=== PATIENT | female | born 1940 | race American Indian/Alaskan Native ===

== ENCOUNTER 2016-09-06 08:51 | Emergency (ER) | payer MEDICARE, BC ==
[2016-09-06 08:57] VITALS: BP 125/91
[2016-09-06] MEDS ORDERED: DUONEB 0.5 MG-3 MG/3 ML SOLN IH ONE ×2 (11:15→12:02)
--- NOTE | 2016-09-06 11:27 | XRay Report ---
Chest 2 views: History: Shortness of breath at night worst. Findings: Normal cardiomediastinal silhouette. The trachea is midline. Scarring right upper lobe and left lower lobe. No consolidation, pneumothorax or pleural effusion. Impression: Findings as described. No acute lung changes.
--- NOTE | 2016-09-06 11:55 | Emergency Department Report ---
- General Chief Complaint: Upper Respiratory Infection Stated Complaint: CHEST CONGESTION/HEAD PAIN Time Seen by Provider: 09/06/16 11:10 Source: patient Mode of arrival: Ambulatory Limitations: No Limitations - History of Present Illness Initial Comments: This is a 76-year-old female well-nourished with nontoxic or ill in appearance that presents with productive cough, head congestion, wheezing for the past week. He states he gets short of breath while sleeping at night, but at this current moment patient denies any shortness of breath. Patient stated the cough is productive with yellowish/greenish. Patient denies any fever or chills. Patient denies chest pain, headache, nausea vomiting, abdominal pain, numbness or tingling sensation of extremities. Patient agrees to sick contacts. 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 Patient denies any history of asthma. Denies recent antibiotics use. Patient stated her pulse oximetry usually runs between 93-96 and is considered normal for her. Patient states allergies to Cipro. MD Complaint: cough (productive), rhinorrhea -: Gradual, week(s) (1) Severity: mild Consistency: constant Associated Symptoms: rhinorrhea, nasal congestion, cough (productive). denies: fever, chills, myalgias, diaphoresis, headache, sore throat, chest pain, shortness of breath, abdominal pain, nausea, vomiting, diarrhea, dysuria, rash, confusion, right sweats, weight loss, epistaxis, hoarseness, ear pain - Related Data Previous Rx's Medication Instructions Recorded Last Taken Type ALBUTEROL Inhaler [ProAir HFA 1 puff IH PRN #1 inha 09/06/16 Unknown Rx Inhaler] Azithromycin [Zithromax Z-NYDIA] 250 mg PO DAILY 5 Days 09/06/16 Unknown Rx Prednisone [predniSONE] 40 mg PO QDAY 5 Days 09/06/16 Unknown Rx Allergies Allergy/AdvReac Type Severity Reaction Status Date / Time ciprofloxacin [From Cipro] Allergy Rash Unverified 05/20/14 14:49 ciprofloxacin HCl Allergy Rash Unverified 05/20/14 14:49 [From Cipro] ED Review of Systems ROS: Stated complaint: CHEST CONGESTION/HEAD PAIN Other details as noted in HPI Constitutional: denies: chills, fever Eyes: denies: eye pain, eye discharge, vision change ENT: congestion. denies: ear pain, throat pain, dental pain, hearing loss, epistaxis Respiratory: cough (productive), wheezing. denies: orthopnea, shortness of breath, SOB with exertion, SOB at rest, stridor Cardiovascular: denies: chest pain, palpitations, dyspnea on exertion, orthopnea , edema, syncope, paroxysmal nocturnal dyspnea Endocrine: no symptoms reported Gastrointestinal: denies: abdominal pain, nausea, diarrhea Genitourinary: denies: urgency, dysuria, hematuria, discharge Musculoskeletal: denies: back pain, joint swelling, arthralgia Skin: denies: rash, lesions Neurological: denies: headache, weakness, paresthesias Psychiatric: denies: anxiety, depression Hematological/Lymphatic: denies: easy bleeding, easy bruising ED Past Medical Hx - Past Medical History Previous Medical History?: Yes Hx Hypertension: Yes - Surgical History Past Surgical History?: No - Social History Smoking Status: Never Smoker Substance Use Type: Alcohol - Medications Home Medications: Home Medications Medication Instructions Recorded Confirmed Last Taken Type ALBUTEROL Inhaler [ProAir HFA 1 puff IH PRN #1 inha 09/06/16 Unknown Rx Inhaler] Azithromycin [Zithromax Z-NYDIA] 250 mg PO DAILY 5 Days 09/06/16 Unknown Rx Prednisone [predniSONE] 40 mg PO QDAY 5 Days 09/06/16 Unknown Rx ED Physical Exam - General Limitations: No Limitations General appearance: alert, in no apparent distress - Head Head exam: Present: atraumatic, normocephalic - Eye Eye exam: Present: normal appearance, PERRL, EOMI - ENT ENT exam: Present: normal exam, normal orophraynx, mucous membranes moist, TM's normal bilaterally, normal external ear exam - Neck Neck exam: Present: normal inspection, full ROM. Absent: tenderness, meningismus, lymphadenopathy, thyromegaly - Respiratory Respiratory exam: Present: normal lung sounds bilaterally, wheezes (bilateral upper and lower lobes). Absent: respiratory distress, rales, rhonchi, stridor, chest wall tenderness, accessory muscle use, decreased breath sounds, prolonged expiratory - Cardiovascular Cardiovascular Exam: Present: regular rate, normal rhythm. Absent: bradycardia , tachycardia, irregular rhythm, systolic murmur, diastolic murmur, rubs, gallop - GI/Abdominal GI/Abdominal exam: Present: soft, normal bowel sounds. Absent: distended, tenderness, guarding, rebound, rigid - Extremities Exam Extremities exam: Present: normal inspection, full ROM, normal capillary refill. Absent: tenderness, pedal edema, joint swelling, calf tenderness - Back Exam Back exam: Present: normal inspection, full ROM. Absent: tenderness, CVA tenderness (R), CVA tenderness (L) - Neurological Exam Neurological exam: Present: alert, oriented X3, CN II-XII intact, normal gait - Psychiatric Psychiatric exam: Present: normal affect, normal mood - Skin Skin exam: Present: warm, dry, intact, normal color. Absent: rash ED Course Vital Signs 09/06/16 09/06/16 09/06/16 08:55 11:39 11:55 Temperature 98.5 F Pulse Rate 81 Pulse Rate [ 110 H 117 H Posterior Bilateral Throughout] Respiratory 18 Rate Respiratory 20 18 Rate [Posterior Bilateral Throughout] Blood Pressure 125/91 O2 Sat by Pulse 93 Oximetry 09/06/16 09/06/16 09/06/16 12:03 12:07 12:38 Temperature Pulse Rate 113 H Pulse Rate [ 110 H Posterior Bilateral Throughout] Respiratory 20 Rate Respiratory 20 Rate [Posterior Bilateral Throughout] Blood Pressure O2 Sat by Pulse 95 98 Oximetry 09/06/16 12:50 Temperature Pulse Rate Pulse Rate [ 120 H Posterior Bilateral Throughout] Respiratory Rate Respiratory 20 Rate [Posterior Bilateral Throughout] Blood Pressure O2 Sat by Pulse Oximetry - Reevaluation(s) Reevaluation #1: 09/06/16 11:58 Patient stated feels much better after receiving DuoNeb and Solu-Medrol IM. Reevaluation #2: 09/06/16 12:05 Please prior to DuoNeb 180. Peak flow after DuoNeb is 190. Reevaluation #3: 09/06/16 13:01 Peak flow post DuoNeb is 210. Reevaluation #4: 09/06/16 13:01 No wheezing present upon auscultation of the upper and lower bilateral lobes. Patient feels much better. 98% O2 sat on room air. Nonlabored breathing. No acute signs of distress. ED Medical Decision Making - Medical Decision Making ED course: This is a 76-year-old female that presents with upper respiratory infection. 1- after my physical exam, patient received DuoNeb and Solu-Medrol IM 40 mg. patient stated feels slightly better with a peak flow of 180. I ordered DuoNeb 2 and will reevaluate patient. 2- peak flow prior to patient received a DuoNeb was 180. Peak flow after the first DuoNeb is 190. Patient received Z-Nydia at the time of discharge. Patient was instructed to follow-up with her primary care doctor in 3-5 days or if symptoms worsen or continue to report back to emergency room. Patient was instructed to finish full course of antibiotics as prescribed. At the time of discharge the patient does not seem toxic or ill in appearance. No signs of distress noted. Patient agrees to discharge treatment plan of care. No Further questioning noted by the patient. Patient also received prednisone 40 mg by mouth x5 days at the time of discharge. Critical care attestation.: If time is entered above; I have spent that time in minutes in the direct care of this critically ill patient, excluding procedure time. ED Disposition Clinical Impression: Upper respiratory disease, Bronchitis Disposition: DISCHARGED TO HOME OR SELFCARE Is pt being admited?: No Does the pt Need Aspirin: No Condition: Stable Instructions: Prednisone (By mouth), Upper Respiratory Infection (ED), Acute Bronchitis (ED) Additional Instructions: Please a full course of antibiotics and prednisone as prescribed. Follow-up with your primary care doctor in 3-5 days or if symptoms worsen such as shortness of breath, chest pain, worsening of wheezing, headache reported to emergency room. Prescriptions: ALBUTEROL Inhaler [ProAir HFA Inhaler] 1 puff IH PRN #1 inha Azithromycin [Zithromax Z-NYDIA] 250 mg PO DAILY 5 Days Prednisone [predniSONE] 40 mg PO QDAY 5 Days Referrals: JOHNSON FLOYD MD [Primary Care Provider] - 3-5 Days [facility] [Outside] - 3-5 Days [facility] [Outside] - 3-5 Days
== END 2016-09-06 13:17 | disposition home or self-care (01) ==
LOC: ED 08:51
DX: J06.9 Acute upper respiratory infection, unspecified (principal); J40 Bronchitis, not specified as acute or chronic; I10 Essential (primary) hypertension; Z88.1 Allergy status to other antibiotic agents
CPT/HCPCS: 71020; 94640; 96372; 99283; J2920

== ENCOUNTER 2017-07-28 07:36 | Outpatient (CLI) | payer BC, MEDICARE ==
--- NOTE | 2017-07-28 08:18 | Mammography Report ---
BILATERAL DIGITAL SCREENING MAMMOGRAM with CAD: 07/28/17 07:36:00 CLINICAL: Routine screening. COMPARISON:06/11/16 FINDINGS: The breasts are almost entirely fatty. No mass, architectural distortion or suspicious calcifications. IMPRESSION: No mammographic evidence of malignancy. BI-RADS CATEGORY: 1 - - Negative RECOMMENDATION: Routine mammographic screening in one year. COMMENT: Patient follow-up letters are generated by our [employer] application.
--- NOTE | 2017-07-28 08:32 | XRay Report ---
ROUTINE CHEST, TWO VIEWS: HISTORY: Chronic bronchitis, cough. The trachea, heart, mediastinal contour, lung [place] and bony thorax are unremarkable. Azygos lobe is noted. No significant change since 09/16/16. IMPRESSION: Unremarkable chest x-ray.
== END 2017-07-28 07:37 | disposition home or self-care (01) ==
LOC: MAMMO 07:36
PROVIDERS: ATTEND Internal Medicine
DX: Z12.31 Encounter for screening mammogram for malignant neoplasm of breast (principal); J42 Unspecified chronic bronchitis
CPT/HCPCS: 71046; 77067

== ENCOUNTER 2019-06-11 07:24 | Outpatient (CLI) | payer BC, MEDICARE ==
--- NOTE | 2019-06-11 14:07 | Mammography Report ---
DIGITAL SCREENING MAMMOGRAM WITH CAD, 06/11/2019 INDICATION: Routine screening mammography. TECHNIQUE: Digital bilateral 2D mammography was obtained in the craniocaudal and mediolateral obliq ue projections. This examination was interpreted with the benefit of Computer-Aided Detection analysi s. COMPARISON: 07/28/2017 and 06/09/2015 FINDINGS: Breast Density: The breasts are almost entirely fatty. There is no evidence of dominant mass, suspicious calcifications or architectural distortion in eithe r breast. A few benign calcifications in each breast. IMPRESSION: No mammographic evidence of malignancy. Follow up recommendation: Routine yearly BI-RADS Category 2: Benign. A "normal" or negative report should not discourage follow up or biopsy of a clinically significant f inding. A written summary of these findings will be mailed to the patient. The patient will be entered into a mammography reporting system which will generate a reminder letter for the patient's next appointmen t at the appropriate interval. The [employer] recommends yearly mammograms starting at age 40 and continuing as l amisha as a woman is in good health. Breast MRI is recommended for women with an approximate 20-25% or greater lifetime risk of breast cancer, including women with a strong family history of breast or ova mati cancer or who have been treated for Hodgkin's disease. Signer Name: Lloyd Segura MD Signed: 06/11/2019 2:02 PM Workstation Name: [id number]
== END 2019-06-11 07:25 | disposition home or self-care (01) ==
LOC: MAMMO 07:24
PROVIDERS: ATTEND Internal Medicine
DX: Z12.31 Encounter for screening mammogram for malignant neoplasm of breast (principal); N64.89 Other specified disorders of breast
CPT/HCPCS: 77067

== ENCOUNTER 2020-06-06 13:51 | Outpatient (CLI) | payer BC, MEDICARE ==
--- NOTE | 2020-06-06 17:53 | Mammography Report ---
DIGITAL SCREENING MAMMOGRAM WITH CAD, 06/06/2020 CLINICAL INFORMATION / INDICATION: Routine screening mammography. TECHNIQUE: Digital bilateral 2D mammography was obtained in the craniocaudal and mediolateral obliqu e projections. This examination was interpreted with the benefit of Computer-Aided Detection analysis . COMPARISON: 06/11/2019, 07/28/2017, 06/11/2016, 08/22/2015 FINDINGS: Breast Density: The breasts are almost entirely fatty. No dominant mass, suspicious calcifications, or architectural distortion in either breast. Coarse bilateral breast calcifications are again noted and have not significantly changed. IMPRESSION: No mammographic evidence of malignancy. Follow up recommendation: Routine yearly BI-RADS Category 2: Benign. A "normal" or negative report should not discourage follow up or biopsy of a clinically significant f inding. A written summary of these findings will be mailed to the patient. The patient will be entered into a mammography reporting system which will generate a reminder letter for the patient's next appointmen t at the appropriate interval. The [employer] recommends yearly mammograms starting at age 40 and continuing as l amisha as a woman is in good health. Breast MRI is recommended for women with an approximate 20-25% or greater lifetime risk of breast cancer, including women with a strong family history of breast or ova mati cancer or who have been treated for Hodgkin's disease. Signer Name: Thea Frank MD Signed: 06/06/2020 5:48 PM Workstation Name: [id number]
== END 2020-06-06 13:52 | disposition home or self-care (01) ==
LOC: MAMMO 13:51
PROVIDERS: ATTEND Internal Medicine
DX: Z12.31 Encounter for screening mammogram for malignant neoplasm of breast (principal)
CPT/HCPCS: 77067